=== PATIENT | male | born 1980 | race Caucasian/White ===

== ENCOUNTER 2023-05-27 10:37 | Emergency (ER) | payer OTHER ==
[2023-05-27] MEDS ORDERED: NA CHLORIDE 0.9% 1,000 ML ONE (11:02)
[2023-05-27 11:08] LABS: Absolute Lymphocytes (CBC) 1.8 K/uL (0.7-4.9); Hematocrit 41.1 % (39.6-49.0); Lymphocytes % 20.9 % (15.3-44.8); MCV 86.9 fL (80-100); MPV 8.9 fL (7.6-11.3); Platelets 291 thou/uL (152-406); RBC Red Blood Cell Count 4.73 M/uL (4.33-5.43)
[2023-05-27 11:22] LABS: Protime INR 1.05
[2023-05-27 11:25] LABS: Potassium 3.9 mEq/L (3.5-5.1)
--- NOTE | 2023-05-27 12:22 | RAD REPORT ---
EXAM DESCRIPTION: RAD - Hip Right 2 View - 05/27/2023 11:48 am CLINICAL HISTORY: PAIN COMPARISON: No comparisons TECHNIQUE: Right hip, AP and frog-leg views. FINDINGS: There is no fracture or dislocation. Deformity along the proximal humeral shaft, may relat e to sequelae of a remote fracture. Osseous protuberance along the superior margin of the acetabulum may predispose to femoroacetabular impingement. No acute or destructive bony process seen. IMPRESSION: No acute findings of the right hip. Chronic findings as above.
--- NOTE | 2023-05-27 12:34 | RAD REPORT ---
EXAM DESCRIPTION: CT - Head C Spine Cap Patsy Pace - 05/27/2023 11:53 am CLINICAL HISTORY: fall, head/neck/back/pelvic pain COMPARISON: No comparisons TECHNIQUE: Head and cervical spine CT images were obtained without IV contrast. Chest, abdomen, and pelvis CT images were obtained following intravenous administration of 100 mL Isovue-300. Multiplanar reformats were generated and reviewed. All CT scans are performed using dose optimization technique as appropriate and may include automated exposure control or mA/KV adjustment according to patient size. FINDINGS: CT HEAD: No intracranial hemorrhage, mass effect, or edema. No evidence of acute territorial infarct. No midli ne shift or abnormal fluid collection. The ventricles are normal in caliber and configuration for age . Basal cisterns are patent. Mastoid aircells and paranasal sinuses are clear. No acute skull fractur e. CT CERVICAL SPINE: No acute cervical spine fracture or subluxation. Vertebral body heights are well maintained. Facet lamar ints are normal in alignment. No hyperattenuating canal hematoma. Prevertebral and paraspinous soft t issues are unremarkable. Thyroid isthmus hypoattenuating 2.1 cm nodule. Left thyroid lobe nodules wit h calcifications, largest measuring up to 2.9 cm, not well characterized. CT CHEST: No pneumothorax, pulmonary contusion or pleural fluid collection. Calcified central left upper lobe 6 millimeter granuloma. No mediastinal hematoma and the aorta and pulmonary arteries are unremarkable. No chest will mass or abnormal axillary finding. No displaced rib fracture or other significant bony finding. CT ABDOMEN/ PELVIS: No evidence of traumatic injury to solid abdominal viscera. Gallbladder and biliary tree are unremark able. No bowel injury or significant finding. No free air, free fluid or abnormal fat stranding. No u rinary bladder abnormality, although suboptimal distention limits evaluation. No significant bony finding. IMPRESSION: No acute traumatic findings. Incidental findings as above, including isthmic and left lobe thyroid nodules, which can be further e valuated by targeted thyroid ultrasound on an outpatient basis. . No significant CT Abdomen and Pelvis finding.
--- NOTE | 2023-05-27 13:19 | EDPHYS ---
Physician Documentation [facility] Name: Mika Roberto Age: 42 yrs Sex: Male : 1980 Arrival Date: 05/27/2023 Time: 10:37 Bed 5 Private MD: ED Physician Niko Back HPI: 05/27 10:56 This 42 yrs old Male presents to ER via EMS with complaints of General Weakness, Fall rn Injury. 10:56 Details of fall: The patient fell from an upright position, while standing. Onset: The rn symptoms/episode began/occurred just prior to arrival. Associated injuries: The patient sustained injury to the head, neck injury. 10:57 Severity of symptoms: At their worst the symptoms were mild, in the emergency rn department the symptoms are unchanged. It is unknown whether or not the patient has had similar symptoms in the past. Patient reports called in for medical attention because he was feeling dizziness and lightheaded. No syncope. Was walking to medical when fell. Patient states he fell down steps, report from care home was that he fell on same level. Patient reports injury to head and neck as well as right hip. Denies recent illness. Denies chest pain. Denies abdominal pain.. Historical: - Allergies: 10:44 Bactrim; ph - Immunization history:: Adult Immunizations unknown. - Social history:: Smoking status: unknown. - Family history:: not pertinent. - Hospitalizations: : No recent hospitalization is reported. ROS: 10:57 Constitutional: Negative for fever, chills, and weight loss, Eyes: Negative for injury, rn pain, redness, and discharge, Neck: Positive for neck pain Cardiovascular: Negative for chest pain, palpitations, and edema, Respiratory: Negative for shortness of breath, cough, wheezing, and pleuritic chest pain, Abdomen/GI: Negative for abdominal pain, nausea, vomiting, diarrhea, and constipation, Back: Negative for injury and pain, : Negative for injury, bleeding, discharge, and swelling, MS/Extremity: Positive for right hip pain Skin: Negative for injury, rash, and discoloration, Neuro: Positive for headache and generalized weakness Exam: 10:57 Constitutional: This is a well developed, well nourished patient who is awake, alert, rn and in no acute distress. Head/Face: Normocephalic, atraumatic. Eyes: Pupils equal round and reactive to light, extra-ocular motions intact. ENT: Dry mucous membranes Neck: In c-collar, midline tenderness Chest/axilla: Nontender with no deformity. No lesions are appreciated. Cardiovascular: Regular rate and rhythm. No pulse deficits. Respiratory: No increased work of breathing, no retractions or nasal flaring. Abdomen/GI: Soft, non-tender Back: No spinal tenderness Skin: Warm, dry with normal turgor. Normal color with no rashes, no lesions, and no evidence of cellulitis. MS/ Extremity: Mild painful range of motion of the right hip. No swelling or deformity. Neuro: Awake and alert, GCS 15, oriented to person, place, time, and situation. Cranial nerves II-XII grossly intact. Motor strength 5/5 in all extremities. Sensory grossly intact. 13:16 ECG was reviewed by the Attending Physician. rn Vital Signs: 10:39 BP 133 / 104; Pulse 81; Resp 17; Temp 97.4; Pulse Ox 100% ; Weight 99.79 kg; Height 6 ph ft. 2 in. ; 13:12 BP 129 / 78; Pulse 75; Resp 18; Pulse Ox 98% on R/A; ph 13:14 BP 120 / 95; Pulse 78; Resp 14; Pulse Ox 97% ; ko1 10:39 Body Mass Index 28.25 (99.79 kg, 187.96 cm) ph MDM: 10:39 Patient medically screened. rn 13:16 Differential diagnosis: contusion, fracture, sprain, strain, Dehydration, generalized rn weakness, near syncope. Data reviewed: vital signs, nurses notes, lab test result(s), EKG, radiologic studies, CT scan, and as a result, I will admit patient. Counseling: I had a detailed discussion with the patient and/or guardian regarding the historical points, exam findings, and any diagnostic results supporting the discharge/admit diagnosis, lab results, radiology results, the need for outpatient follow up, to return to the emergency department if symptoms worsen or persist or if there are any questions or concerns that arise at home. Special discussion: I discussed with the patient/guardian in detail that at this point there is no indication for admission to the hospital. It is understood, however, that if the symptoms persist or worsen the patient needs to return immediately for re-evaluation. ED course: I have personally reviewed all of the results, including but not limited to blood tests and imaging deemed necessary to safely discharge this patient at this time. All results given to and printed out for patient. I personally went over all the results with the patient and answered all questions. Patient will follow-up with PCP and or specialist as discussed. Return precautions given and understood.. 13:47 ED course: Images negative for acute injury. C-collar removed and patient with full rn range of motion of neck without pain or limitations. Normal neurological exam including upper extremities. No other signs of symptoms at this time to indicate emergent need for MRI.. 05/27 10:45 Order name: Basic Metabolic Panel; Complete Time: 11:39 rn 05/27 10:45 Order name: CBC with Diff; Complete Time: 11:39 rn 05/27 10:45 Order name: Protime (+inr); Complete Time: 11:39 rn 05/27 10:45 Order name: Ptt, Activated; Complete Time: 11:39 rn 05/27 10:45 Order name: Troponin High Sensitivity; Complete Time: 11:39 rn 05/27 10:45 Order name: CT Traumagram (Head C Spine CAP W Con); Complete Time: 12:41 rn 05/27 10:57 Order name: XRAY Hip RIGHT 2 view; Complete Time: 12:41 rn 05/27 10:45 Order name: EKG; Complete Time: 10:46 rn 05/27 10:45 Order name: Cardiac monitoring; Complete Time: 11:00 rn 05/27 10:45 Order name: EKG - Nurse/Tech; Complete Time: 12:36 rn 05/27 10:45 Order name: IV Saline Lock; Complete Time: 11:00 rn 05/27 10:45 Order name: Labs collected and sent; Complete Time: 11:00 rn 05/27 10:45 Order name: NPO; Complete Time: 11:00 rn 05/27 10:45 Order name: O2 Per Protocol; Complete Time: 11:00 rn 05/27 10:45 Order name: O2 Sat Monitoring; Complete Time: 11:00 rn EC:16 Rate is 76 beats/min. Rhythm is regular. QRS [place] is Normal. NC interval is normal. QRS rn interval is normal. QT interval is normal. No Q waves. T waves are Normal. No ST changes noted. Clinical impression: Normal ECG. Interpreted by me. Reviewed by me. Administered Medications: 11:15 Drug: NS 0.9% IV 1000 ml IV at 1000 ml once Route: IV; Rate: 1000 ml; Site: left ph forearm; 12:30 Follow up: Response: No adverse reaction; IV Status: Completed infusion ph Disposition Summary: 05/27/23 13:19 Discharge Ordered Notes: Location: Home rn Problem: new rn Symptoms: have improved rn Condition: Stable rn Diagnosis - Muscle weakness (generalized) rn - Fall on same level, unspecified rn - Dizziness and giddiness rn - Contusion of right hip rn - Contusion of unspecified part of head, initial encounter rn Followup: rn - With: Private Physician - When: As needed - Reason: Recheck today's complaints, Re-evaluation by your physician Discharge Instructions: - Discharge Summary Sheet rn - Contusion rn - Dizziness rn - Weakness rn Forms: - Medication Reconciliation Form rn - Thank You Letter rn - Antibiotic nursery rn - Prescription Opioid Use rn - Patient Portal Instructions rn - Leadership Thank You Letter rn Signatures: Dispatcher [employer] Niko Rojas MD MD rn Hall, Patricia, RN RN
--- NOTE | 2023-05-27 13:19 | ER ---
Nurse's Notes [facility] Name: Mika Roberto Age: 42 yrs Sex: Male : 1980 Arrival Date: 05/27/2023 Time: 10:37 Bed 5 Private MD: Diagnosis: Muscle weakness (generalized);Fall on same level, unspecified;Dizziness and giddiness;Contusion of right hip;Contusion of unspecified part of head, initial encounter Presentation: 05/27 10:39 Chief complaint: EMS states: Pt from [facility], reports that he was in his cell and felt ph weak, fell to the ground twice, denies LOC, hx of neck injury, pt placed in c-collar and on backboard to be carried down the stairs, pt states that they carried him down head first and that he was dropped on the stairs. Coronavirus screen: Vaccine status: Patient reports receiving the 2nd dose of the covid vaccine. Ebola Screen: No symptoms or risks identified at this time. Initial Sepsis Screen: Does the patient meet any 2 criteria? No. Patient's initial sepsis screen is negative. Does the patient have a suspected source of infection? No. Patient's initial sepsis screen is negative. Risk Assessment: Do you want to hurt yourself or someone else? Patient reports no desire to harm self or others. Onset of symptoms was May 27, 2023. 10:39 Method Of Arrival: EMS: [facility] 10:39 Acuity: CINDY 3 ph Triage Assessment: 10:45 General: Appears in no apparent distress. Behavior is cooperative. Pain: Complains of ph pain in neck and LLQ. Neuro: Level of Consciousness is awake, alert, obeys commands, Oriented to person, place, time, situation. Cardiovascular: Capillary refill < 3 seconds in bilateral fingers. Respiratory: Airway is patent Respiratory effort is even, unlabored. Derm: Skin is pink, warm \T\ dry. Rash noted that is red, on face, right arm, left arm, right leg and left leg. Historical: - Allergies: 10:44 Bactrim; ph - Immunization history:: Adult Immunizations unknown. - Social history:: Smoking status: unknown. - Family history:: not pertinent. - Hospitalizations: : No recent hospitalization is reported. Screenin:11 [facility] ED Fall Risk Assessment (Adult) History of falling in the last 3 months, ph including since admission Yes- single mechanical fall (1 pt) Confusion or Disorientation No (0 pts) Intoxicated or Sedated No (0 pts) Impaired Gait No (0 pts) Mobility Assist Device Used No (0 pt) Altered Elimination No (0 pt) Score/Fall Risk Level 0 - 2 = Low Risk Oriented to surroundings, Maintained a safe environment, Provided non-skid footwear, Hourly rounding (assess needs \T\ fall precautionary measures) done. Abuse screen: Denies threats or abuse. Denies injuries from another. Nutritional screening: No deficits noted. Tuberculosis screening: No symptoms or risk factors identified. Assessment: 13:12 General: SEE TRIAGE ASSESSMENT. ph Vital Signs: 10:39 BP 133 / 104; Pulse 81; Resp 17; Temp 97.4; Pulse Ox 100% ; Weight 99.79 kg; Height 6 ph ft. 2 in. ; 13:12 BP 129 / 78; Pulse 75; Resp 18; Pulse Ox 98% on R/A; ph 13:14 BP 120 / 95; Pulse 78; Resp 14; Pulse Ox 97% ; ko1 10:39 Body Mass Index 28.25 (99.79 kg, 187.96 cm) ph ED Course: 10:39 Patient arrived in ED. ph 10:39 Niko Back MD is Attending Physician. rn 10:44 Triage completed. ph 10:45 Arm band placed on Patient placed in an exam room. ph 10:47 Roshni Arambula, RN is Primary Nurse. ph 11:00 Basic Metabolic Panel Sent. bc6 11:00 CBC with Diff Sent. bc6 11:00 Protime (+inr) Sent. bc6 11:00 Ptt, Activated Sent. bc6 11:00 Troponin High Sensitivity Sent. bc6 11:45 XRAY Hip RIGHT 2 view In Process Unspecified. EDMS 11:55 CT Traumagram (Head C Spine CAP W Con) In Process Unspecified. EDMS 12:20 Provided Education on: reason to keep c-collar on until cleared by MD. ph 12:20 Patient has correct armband on for positive identification. ph 12:42 EKG done, by ED staff, reviewed by Niko Back MD. ph 13:39 No provider procedures requiring assistance completed. IV discontinued, intact, ko1 bleeding controlled, No redness/swelling at site. Pressure dressing applied. Administered Medications: 11:15 Drug: NS 0.9% IV 1000 ml IV at 1000 ml once Route: IV; Rate: 1000 ml; Site: left ph forearm; 12:30 Follow up: Response: No adverse reaction; IV Status: Completed infusion ph Medication: 13:12 VIS not applicable for this client. ph Outcome: 13:19 Discharge ordered by . rn 13:39 Discharged to Law Enforcement ko1 13:39 Condition: good 13:39 Discharge instructions given to [place] unit guards Instructed on discharge instructions, follow up and referral plans. Demonstrated understanding of instructions, follow-up care, 13:40 Patient left the ED. [email or web address] Signatures: Dispatcher [employer] EDMS Niko Back MD MD rn Hall, Patricia RN Shannon Taylor ph, RN RN jl7 Madison Chong RN RN ko Silvia Melo [facility]
[2023-05-27 13:45] VITALS: TEMP 97.4
[2023-05-27 13:47] VITALS: BP 120/95; O2SAT 97
--- NOTE | 2023-05-30 12:24 | EKG ---
Test Date: 2023-05-27 Test Time: 12:39:18 [employer] Control Operator: EDITA MEASUREMENT RESULTS: Intervals: Rate: 76 ND: 190 QRSD: 76 QT: 410 QTc: 461 Central: P: 77 ND: 190 QRS: 74 T: 63 INTERPRETIVE STATEMENTS: Normal sinus rhythm Normal ECG No previous ECG available for comparison Electronically Signed On 05-30-23 12:18:25 CDT by Sidney Vernon
== END 2023-05-27 13:40 | disposition home or self-care (01) ==
LOC: ER 10:37
DX: M62.81 Muscle weakness (generalized) (principal); R42 Dizziness and giddiness; S70.01XA Contusion of right hip, initial encounter; S00.83XA Contusion of other part of head, initial encounter; W18.30XA Fall on same level, unspecified, initial encounter; Z88.1 Allergy status to other antibiotic agents
CPT/HCPCS: 85025; 80048; 36415; 85610; 85730; 84484; 70450; 72125; 71260; 74177; 73502; 96360; 99284; Q9967; 93005; J7030